=== PATIENT | male | born 1980 | race Two or more races ===

== ENCOUNTER 2023-10-24 17:58 | Emergency (ER) | payer SELFPAY ==
[~2023-10-24] VITALS: Ht 165.1 cm; Wt 82.2 kg
[2023-10-24 20:09] LABS: Basophils # (auto) 0 10 ^3/uL (0-0.2); Basophils % (auto) 0.2 % (0.0-2.0); Eosinophils # (auto) 0 10 ^3/uL (0-0.8); Eosinophils % (auto) 0.3 % (0.0-7.0); Hemoglobin 17.1 g/dL (13.5-17.5); Lymphocytes # (auto) 2.4 10 ^3/uL (0.4-5.4); Lymphocytes % (auto) 16.6 % (10.0-50.0); Mean Corpuscular Hemoglobin 30.7 pg (28.0-32.0); Mean Corpuscular Hgb Conc. 34.9 g/dL (32.0-36.0); Mean Corpuscular Volume 87.9 fL (80.0-100.0); Monocytes # (auto) 0.9 10 ^3/uL (0-1.3); Monocytes % (auto) 6.5 % (0.0-12.0); Neutrophils % (auto) 76.4 % (37.0-80.0); Nucleated Red Blood Cells % 0.4 %; Red Blood Cells 5.58 10^6/uL (4.5-5.90); White Blood Cell 14.5 10^3/uL (4.4-10.8)
[2023-10-24 20:15] LABS: Alanine Aminotransferase 52 U/L (7-40); Alkaline Phosphatase 72 U/L (46-116); Calcium 10.2 mg/dL (8.7-10.4); Carbon Dioxide 23 mmol/L (20-30); Chloride 108 mmol/L (98-107); Glucose 100 mg/dL (74-106); Lipase 34 U/L (12-53); Potassium 4.5 mmol/L (3.5-5.1); Sodium 141 mmol/L (136-145)
[2023-10-24 20:16] LABS: Anion Gap 10 (5-15); Aspartate Aminotransferase 25 U/L (13-40); BUN/Creatinine Ratio 15.7 (10.0-20.0); Blood Urea Nitrogen 14 mg/dL (9-23); Total Protein 7.6 g/dL (5.7-8.2)
[2023-10-24 20:52] LABS: Urine Bacteria None Seen /hpf (None Seen)
[2023-10-24 21:28] LABS: Urine Amorphous Crystal FEW /hpf (None Seen); Urine Blood Negative /uL (Negative); Urine Clarity Ex.Turbid (Clear); Urine Color Yellow (Yellow); Urine Mucus FEW (None Seen); Urine Protein, UAD TRACE (Negative); Urine Specific Gravity 1.033 (1.001-1.035); Urine Urobilinogen Normal (Negative); Urine WBC 57 /hpf (0 - 3); Urine pH 5.5 (5.0-9.0)
[2023-10-24 22:15] VITALS: PULSE 69; RESP 12; O2SAT 98
[2023-10-24] MEDS ORDERED: PANT40TA2 PO (22:22)
[2023-10-24 22:36] VITALS: BP 142/90; PULSE 69; RESP 14; TEMP 99.3; O2SAT 98
== END 2023-10-24 22:42 | disposition home or self-care (01) ==
LOC: ER 17:58
DX: K29.70 Gastritis, unspecified, without bleeding (principal); Z90.49 Acquired absence of other specified parts of digestive tract; Z98.890 Other specified postprocedural states
CPT/HCPCS: 36415; 80053; 81001; 83690; 85025